=== PATIENT | female | born 1955 | race Caucasian/White ===

== ENCOUNTER 2017-08-25 08:59 | Outpatient (CLI) | payer OTHER | END 2017-08-25 09:00 | disposition home or self-care (01) | LOC: DTY/OP 08:59 | PROVIDERS: ATTEND Specialist | DX: Z01.818 Encounter for other preprocedural examination (principal); E66.01 Morbid (severe) obesity due to excess calories | CPT/HCPCS: 97802 ==

== ENCOUNTER 2018-02-02 16:09 | Outpatient (CLI) | payer BC | END 2018-02-02 16:10 | disposition home or self-care (01) | LOC: BICMAMMO 16:09 | PROVIDERS: ATTEND Obstetrics & Gynecology | DX: Z12.31 Encounter for screening mammogram for malignant neoplasm of breast (principal); R92.1 Mammographic calcification found on diagnostic imaging of breast | CPT/HCPCS: 77063; 77067 ==

== ENCOUNTER 2018-02-05 08:17 | Outpatient (CLI) | payer BC ==
--- NOTE | 2018-02-05 10:24 | RAD ---
LUMBAR SPINE 3 VIEWS: Date: 02/05/18 HISTORY: Low back pain. FINDINGS: There is anterior wedging of the L1 vertebra with loss of anterior height. This may be 20-25%. Promin ent anterior osteophytes at T12-L1 and L1-2 suggest stable compression. The other lumbar vertebra ariel ntain height and alignment. Degenerative disc changes are noted. Loss of disc space at L4-5. No evide nce of spondylolisthesis or spondylolysis. Facet hypertrophy is noted. IMPRESSION: Moderate degenerative changes of the lumbar spine as described. Anterior wedge compression at the L1 vertebra is noted as described. POS: OFF
== END 2018-02-05 08:18 | disposition home or self-care (01) ==
LOC: RAD-FRANK 08:17
PROVIDERS: ATTEND Nurse Practitioner Family
DX: M54.5 Low back pain (principal); M47.896 Other spondylosis, lumbar region
CPT/HCPCS: 72100

== ENCOUNTER 2019-03-01 07:53 | Outpatient (CLI) | payer BC ==
--- NOTE | 2019-03-01 09:07 | MMO ---
Bilateral MAMMO Bilat Screen [facility]. CLINICAL HISTORY: Patient is 63 years old and is seen for screening. The patient has no family history of breast cancer. The patient has no personal history of cancer. VIEWS: The views performed were: bilateral craniocaudal with tomosynthesis and bilateral mediolateral oblique with tomosynthesis. FILMS COMPARED: The present examination has been compared to prior imaging studies performed at [facility] on 09/28/2012, 08/25/2014, 10/10/2015, 10/21/2016 and 02/02/2018. MAMMOGRAM FINDINGS: There are stable benign appearing calcifications seen in both breasts. There are no suspicious masses, suspicious calcifications, or new areas of architectural distortion. IMPRESSION: THERE IS NO MAMMOGRAPHIC EVIDENCE OF MALIGNANCY. A ROUTINE FOLLOW-UP MAMMOGRAM IN 1 YEAR IS RECOMMENDED. THE RESULTS OF THIS EXAM WERE SENT TO THE PATIENT. ACR BI-RADS Category 2 - Benign finding MAMMOGRAPHY NOTE: 1. A negative mammogram report should not delay a biopsy if a dominant of clinically suspicious mass is present. 2. Approximately 10% to 15% of breast cancers are not detected by mammography. 3. Adenosis and dense breasts may obscure an underlying neoplasm.
== END 2019-03-01 07:54 | disposition home or self-care (01) ==
LOC: BICMAMMO 07:53
PROVIDERS: ATTEND Obstetrics & Gynecology
DX: Z12.31 Encounter for screening mammogram for malignant neoplasm of breast (principal)
CPT/HCPCS: 77063; 77067

== ENCOUNTER 2019-10-18 20:56 | Observation (INO) | payer BC, MEDICARE ==
--- NOTE | 2019-10-18 21:27 | RAD ---
Exam: Chest one view HISTORY:Chest pain Comparison: 04/15/2006 FINDINGS: Cardiac silhouette: Normal Aorta: Atherosclerosis Pulmonary vessels: Normal Costophrenic angles: Clear LUNGS: No masses or consolidation. Pneumothorax: None Osseous abnormalities: None IMPRESSION: No acute cardiopulmonary process. Atherosclerosis
[2019-10-18 21:33] LABS: #Basophils 0.1 thou/uL (0.0-0.2); #Eosinphils 0.4 thou/uL (0.0-0.7); #Lymphocytes 4.2 thou/uL (1.20-3.40); #Monocytes 0.6 thou/uL (0.11-0.59); #Neutrophils 3.3 thou/uL (1.40-6.50); %Basophils 1.3 % (0.0-1.0); %Eosinophils 4.8 % (0.0-10.0); %Lymphocytes 48.2 % (21.0-51.0); %Monocytes 7.4 % (0.0-10.0); %Neutrophils 38.4 % (42.0-75.0); Mean Corpuscular HGB CONC 34.2 g/dL (32.0-36.0); Mean Corpuscular Hemoglobin 31.7 pg (27.0-31.0); Mean Corpuscular Volume 92.7 fL (78.0-98.0); Platelet Count 207 thou/uL (130-400); RBC Distribution Width 11.8 % (11.5-14.5); White Blood Cell (WBC) Count 8.7 thou/uL (4.8-10.8)
[2019-10-18] MEDS ORDERED: Nitroglycerin 2% Ointment 1 INCH/1 GM Packet ONE (21:49)
[2019-10-18 22:04] LABS: ALT (SGPT) 20 U/L (8-55); AST (SGOT) 30 U/L (5-34); Albumin 4.6 g/dL (3.4-4.8); Alkaline Phosphatase 86 U/L (40-110); Anion Gap 16 mmol/L (10-20); BUN (Urea Nitrogen) 16 mg/dL (9.8-20.1); Bilirubin, Total 0.4 mg/dL (0.2-1.2); CK (CPK) 193 U/L (29-168); Calc. Creatinine Clearance 0 mL/min (70-130); Calcium 10.2 mg/dL (7.8-10.44); Carbon Dioxide 27 mmol/L (23-31); Chloride 99 mmol/L (98-107); Estimated GFR-MDRD 55; Globulin 4.2 g/dL (2.4-3.5); Glucose 190 mg/dL (80-115); Protein, Total 8.8 g/dL (6.0-8.3); Sodium 138 mmol/L (136-145)
[2019-10-19 02:31] LABS: Troponin I Less than 0.010 ng/mL (< 0.028)
[2019-10-19 05:57] LABS: Troponin I 0.011 ng/mL (< 0.028)
[2019-10-19] MEDS ORDERED: Ondansetron PF 4 MG/2 ML Vial IVP PRN (07:38)
[2019-10-19] MEDS ORDERED: Ondansetron ODT 4 MG TAB PO PRN (07:38)
[2019-10-19] MEDS ORDERED: Senokot S 8.6-50 MG TAB PO PRN (07:38)
[2019-10-19] MEDS ORDERED: Labetalol HCl 100 MG/20 ML VIAL SLOW IVP PRN (07:38)
[2019-10-19] MEDS ORDERED: Acetaminophen 325 MG TAB PO PRN (07:38)
[2019-10-19] MEDS ORDERED: Calcium Carbonate 500 MG ChewTAB PO PRN (07:38)
[2019-10-19] MEDS ORDERED: Nitroglycerin 0.4 MG TAB (25 Tab Bottle) PO PRN (07:38)
[2019-10-19] MEDS ORDERED: Insulin Regular 300 UNITS/3 ML VIAL SC PRN ×2 (07:39)
[2019-10-19] MEDS ORDERED: Dextrose 5% in Water 1,000 ML IV PRN (07:39)
[2019-10-19] MEDS ORDERED: Dextrose 50% Abboject 50 ML SYRINGE SLOW IVP PRN (07:39)
[2019-10-19] MEDS ORDERED: Enalaprilat Dihydrate 1.25 MG/ML VIAL SLOW IVP PRN (07:44)
[2019-10-19] MEDS ORDERED: Aspirin 325 mg Enteric Coated Tablet PO SCH (09:00)
[2019-10-19] MEDS ORDERED: Prevnar 13-Val Conj/PF 0.5 ML SYRINGE IM ONE (09:00)
[2019-10-19] MEDS ORDERED: Liothyronine Sodium 5 MCG TAB PO SCH (09:00)
[2019-10-19] MEDS ORDERED: Aspirin 325 MG TAB PO SCH (09:00)
[2019-10-19] MEDS ORDERED: Lisinopril 2.5 MG TAB PO SCH (09:00)
[2019-10-19] MEDS ORDERED: Communication Order-Pharmacy FS SCH (09:30)
[2019-10-19] MEDS ORDERED: Sodium Chloride 0.9% 1,000 ML IV SCH ×2 (09:30→13:00)
[2019-10-19] MEDS ORDERED: Heparin 10,000 UNITS/1 ML VIAL ONE (11:11)
[2019-10-19] MEDS ORDERED: Nitroglycerin 100MG/250ML BOT 250 ML ONE (11:11)
[2019-10-19] MEDS ORDERED: Lidocaine 1% (PF) 30 ML VIAL ONE (11:11)
[2019-10-19] MEDS ORDERED: Heparin (Artline) 1,000 ML ONE (11:11)
[2019-10-19] MEDS ORDERED: Verapamil 5 MG/2 ML VIAL ONE (11:11)
--- NOTE | 2019-10-19 11:52 | HP ---
PRIMARY CARE PHYSICIAN: KAROLINE Gonzales CHIEF COMPLAINT: Chest discomfort. HISTORY OF PRESENT ILLNESS: The patient is a 64-year-old white female with hypertension, diabetes mellitus type 2, and hyperlipidemia presented to the emergency room with chest discomfort. The chest discomfort was substernal/epigastric area without any radiation. It was pressure-like and felt like indigestion. She denies any radiation, lightheadedness, dizziness, or palpitations. She has shortness of breath on moderate exertion which has not changed recently. She denies recent immobilization travel or leg swelling. She tried taking kwzh-ssk-[id number] Tums without significant relief. She was scheduled to see Dr. Silva today. In the emergency room, her initial vital signs showed temperature 98, pulse rate of 68, respirations of 18, blood pressure of 163/69 with O2 saturation of 98% on room air. Her EKG showed sinus rhythm with nonspecific ST-T wave changes. She had nitroglycerin patch placed after which her symptoms somewhat improved. She also had a stress test last month at Dr. Silva's office that was negative per patient report. PAST MEDICAL HISTORY: 1. Hypertension. 2. Diabetes mellitus type 2. 3. Hyperlipidemia. 4. Obesity with a BMI of 33.7. 5. CKD stage 3. PAST SURGICAL HISTORY: 1. Cholecystectomy. 2. Tonsillectomy. ALLERGIES: NO KNOWN DRUG ALLERGIES. CURRENT HOME MEDICATION: 1. Vasotec 10 mg daily. 2. Levothyroxine 125 mcg daily. 3. Cytomel 5 mcg daily. 4. Sitagliptin with metformin mg twice a day. SOCIAL HISTORY: The patient currently lives at home with her family. She is full code, makes her own decision with the help of her . No current use of tobacco, alcohol, or drug use. FAMILY HISTORY: Positive for hypertension. Mother had prediabetes. Father had some kind of cancer. REVIEW OF SYSTEMS: All other review of systems was reviewed and were found negative. PHYSICAL EXAMINATION: VITAL SIGNS: As discussed above. GENERAL: 64-year-old female in no apparent distress. Denies any chest discomfort. HEENT: Head, atraumatic and normocephalic. Sclerae anicteric. Moist mucous membranes. No oral lesion. NECK: Supple. No JVD appreciated. No carotid bruit. LUNGS: Clear to auscultation bilaterally. No wheezing, rales, or rhonchi. HEART: S1 and S2 present. Regular rate and rhythm. No rubs or gallops. ABDOMEN: Soft, nontender. Bowel sounds present. No rebound or guarding. EXTREMITIES: No edema or calf tenderness. NEUROLOGY: Grossly nonfocal. Power was 5/5 in all extremities. PSYCHIATRY: Alert, awake, and oriented x3. Normal affect. PERIPHERAL VASCULAR: Radial pulses palpable bilaterally and equal volume. SKIN: Warm and dry. LYMPH NODES: No palpable lymph nodes in the neck. LABORATORY FINDINGS: CBC showed WBC 8.7 with hemoglobin 13, hematocrit 38, platelet count 207. Chemistry showed sodium 138, potassium 4, chloride 99, bicarb 27, BUN 16, creatinine 1.01, glucose of 190. Troponin x3 have been negative. BNP was 17.2. EKG by my review as discussed above. Chest x-ray by my review was negative for infiltrate or edema. IMPRESSION: 1. Chest discomfort, rule out acute coronary syndrome. 2. Recent negative stress test per patient report. 3. Diabetes mellitus type 2. 4. Hypertension. 5. Hyperlipidemia. 6. Obesity with a BMI of 33.7. 7. Chronic kidney disease, stage 3. PLAN: The patient will be monitored on the telemetry unit. Cardiology will be consulted. We will continue aspirin. We will resume Vasotec. We will add low-dose statins. Resume levothyroxine. We will add PPIs. We will keep her n.p.o. for possible cardiac catheterization. DISPOSITION: Based on Cardiology input. Job ID: [id number]
[2019-10-19] MEDS ORDERED: Midazolam HCl 2 mg/2 ml Vial ONE (12:21)
[2019-10-19] MEDS ORDERED: Fentanyl 100 MCG/2 ML VIAL ONE (12:21)
[2019-10-19] MEDS ORDERED: Sodium Chloride 0.9% 200 ML IV PRN (12:46)
[2019-10-19] MEDS ORDERED: Nitroglycerin 0.4 MG TAB (25 Tab Bottle) SL PRN (12:46)
[2019-10-19] MEDS ORDERED: Acetaminophen/Codeine 30-300mg Tablet PO PRN ×2 (12:46)
--- NOTE | 2019-10-19 12:49 | CON ---
DATE OF CONSULTATION: REASON FOR CONSULTATION: Chest pain. HISTORY OF PRESENT ILLNESS: Ms. Reynolds is a 64-year-old woman with recent diagnosis of coronary artery disease based on a calcium score. She underwent a noninvasive stress study, was felt to be negative for ischemia. She recently had chest tightness and epigastric pain. She is concerned about underlying coronary artery disease given her previous history. She proceed to the emergency room. Pain lasted for several minutes. This slowly resolved. No other ameliorating exacerbating, or precipitating factors present. PAST MEDICAL HISTORY: CAD, hypertension, hyperlipidemia, varicose veins, diabetes mellitus. SURGICAL HISTORY: Knee surgery, cholecystectomy. HOME MEDICATIONS: Include Janumet, enalapril, thyroid, aspirin, Metamucil, fish oil, super B, vitamin D3, vitamin E, magnesium, ginkgo biloba. REVIEW OF SYSTEMS: A 10-point review of systems is reviewed as above, otherwise negative. ALLERGIES: NONE. PHYSICAL EXAMINATION: GENERAL: The patient is a pleasant female who is in no acute distress. The patient appears their stated age. VITAL SIGNS: Blood pressure 168/77, pulse 63, temp 98.7. NEUROLOGIC: The patient is alert and oriented x3 with no focal neurologic deficits. HEENT: Sclerae without icterus. Mouth has moist mucous membranes with normal pallor. NECK: No JVD. Carotid upstroke brisk. No bruits bilaterally. LUNGS: Clear to auscultation with unlabored respirations. BACK: No scoliosis or kyphosis. CARDIAC: Regular rate and rhythm with normal S1 and S2. No S3 or S4 noted. No significant rubs, murmurs, thrills, or gallops noted throughout the precordium. PMI is not displaced. There is no parasternal heave. ABDOMEN: Soft, nontender, nondistended. No peritoneal signs present. No hepatosplenomegaly. No abnormal striae. EXTREMITIES: 2+ femoral and 2+ dorsalis pedis pulses. No cyanosis, clubbing, or edema. SKIN: No gross abnormalities. PERTINENT LAB: CK troponin negative. Hemoglobin 13.0. EKG normal sinus rhythm with nonspecific ST-T wave changes. IMPRESSION: 1. Chest pain. 2. Coronary artery disease. 3. Diabetes mellitus. 4. Hyperlipidemia. RECOMMENDATIONS: Ms. Reynolds has multiple risk factors for underlying coronary artery disease. She does have coronary artery disease based on calcium score, although her perfusion study recently was negative for ischemia. I discussed medical therapy versus coronary angiography. I have discussed risks and benefits of both. She would like to proceed with coronary angiography. I discussed proceeding in full detail with Ms. Reynolds which include, but not limited to the following: I discussed the procedure in full detail with the patient. The risks of the procedure were also discussed. The risks of the procedure include but are not limited to the following: , stroke, MO, need for emergency surgery, loss of limb, bleeding, and infection, as well as a reaction to the dye causing kidney failure and needing long-term dialysis. I also discussed the risks of PCI to include all of the above including coronary dissection and perforation in addition to acute stent thrombosis and restenosis. All questions about the procedure were answered. Given the above, the patient agreed to proceed with coronary angiography and possible PCI. All questions answered. Also discussed drug coated versus nondrug coated stent placement. There were no complications. We will proceed if needed. Job ID: [id number]
[2019-10-19] MEDS ORDERED: Iopamidol 370 76% 100 ML VIAL ONE (15:55)
--- NOTE | 2019-10-19 16:25 | DIS ---
DATE OF ADMISSION: 10/19/2019 DATE OF DISCHARGE: 10/19/2019 DISCHARGE DISPOSITION: Home. FOLLOWUP: 1. Follow up with primary care physician, Guadalupe Vilalnueva in 1 week. 2. Follow up with Dr. Silva as scheduled. 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 Silva. BRIEF HOSPITAL COURSE: The patient is a 64-year-old female with hypertension, diabetes mellitus type 2 and hyperlipidemia with recent negative stress test, presented to the hospital with chest discomfort. She was monitored on the telemetry unit. Serial troponins were negative. EKG showed sinus rhythm with nonspecific ST-T wave changes. She underwent cardiac catheterization that showed 30% lesion in the RCA. Left main, LAD and left circumflex were normal. She has been started on low-dose aspirin along with statins. She will also take Protonix 40 mg daily for 1 month. Plan of care was discussed with the patient and the family in detail, they stated understanding. FINAL DIAGNOSES: 1. Chest discomfort, acute coronary syndrome ruled out. 2. Mild to moderate coronary artery disease. 3. Recent negative stress test. 4. Diabetes mellitus, type 2. 5. Hypertension. 6. Hyperlipidemia. 7. Suspected gastroesophageal reflux disease. 8. Obesity with a BMI of 33.7. 9. Chronic kidney disease, stage 3. Job ID: [id number]
[2019-10-19 19:24] VITALS: BP 132/61; TEMP 98.6
[2019-10-20] MEDS ORDERED: Levothyroxine Sodium 125 MCG TAB PO SCH (06:00)
== END 2019-10-19 17:37 | disposition home or self-care (01) ==
LOC: ERS 20:56 → 2SW 10-19 00:20
PROVIDERS: ADMIT Internal Medicine; ATTEND Internal Medicine
PROC: 4A023N7 Measurement of Cardiac Sampling and Pressure, Left Heart, Percutaneous Approach (ICD-10-PCS; principal; 2019-10-19)
PROC: B201YZZ Plain Radiography of Multiple Coronary Arteries using Other Contrast (ICD-10-PCS; 2019-10-19)
PROC: B205YZZ Plain Radiography of Left Heart using Other Contrast (ICD-10-PCS; 2019-10-19)
DX: R07.89 Other chest pain (principal); I25.10 Atherosclerotic heart disease of native coronary artery without angina pectoris; E11.22 Type 2 diabetes mellitus with diabetic chronic kidney disease; I12.9 Hypertensive chronic kidney disease with stage 1 through stage 4 chronic kidney disease, or unspecified chronic kidney disease; N18.3 Chronic kidney disease, stage 3 (moderate); E78.5 Hyperlipidemia, unspecified; E66.9 Obesity, unspecified; Z68.33 Body mass index [BMI] 33.0-33.9, adult; Z79.84 Long term (current) use of oral hypoglycemic drugs; Z79.82 Long term (current) use of aspirin; Z79.899 Other long term (current) drug therapy
CPT/HCPCS: 36415; 36416; 71045; 80053; 82550; 83880; 84484; 85025; 90471; 90670; 93005; 93458; 94760; 96360; 99152; C1769; G0009; G0378; J1644; J2001; J2250; J3010; Q9967

== ENCOUNTER 2020-03-16 09:34 | Outpatient (CLI) | payer MEDICARE, BC ==
--- NOTE | 2020-03-16 10:33 | MMO ---
Bilateral MAMMO Bilat Screen [facility]. CLINICAL HISTORY: Patient is 64 years old and is seen for screening. The patient has no family history of breast cancer. The patient has no personal history of cancer. VIEWS: The views performed were: bilateral craniocaudal with tomosynthesis and bilateral mediolateral oblique with tomosynthesis. FILMS COMPARED: The present examination has been compared to prior imaging studies performed at [facility] on 10/10/2015, 10/21/2016, 02/02/2018 and 03/01/2019. This study has been interpreted with the assistance of computer-aided detection. MAMMOGRAM FINDINGS: There are scattered fibroglandular densities. Benign calcifications are noted bilaterally. There are no suspicious masses, suspicious calcifications, or new areas of architectural distortion. IMPRESSION: THERE IS NO MAMMOGRAPHIC EVIDENCE OF MALIGNANCY. A ROUTINE FOLLOW-UP MAMMOGRAM IN 1 YEAR IS RECOMMENDED. THE RESULTS OF THIS EXAM WERE SENT TO THE PATIENT. ACR BI-RADS Category 2 - Benign finding MAMMOGRAPHY NOTE: 1. A negative mammogram report should not delay a biopsy if a dominant of clinically suspicious mass is present. 2. Approximately 10% to 15% of breast cancers are not detected by mammography. 3. Adenosis and dense breasts may obscure an underlying neoplasm. Reported by: Lala BUSH Electonically Signed: [id number]
== END 2020-03-16 09:35 | disposition home or self-care (01) ==
LOC: BICMAMMO 09:34
PROVIDERS: ATTEND Obstetrics & Gynecology
DX: Z12.31 Encounter for screening mammogram for malignant neoplasm of breast (principal)
CPT/HCPCS: 77063; 77067

== ENCOUNTER 2020-11-29 14:48 | Outpatient (CLI) | payer MEDICARE, BC ==
--- NOTE | 2020-11-29 15:04 | RAD ---
RIGHT ANKLE 3 VIEWS: HISTORY: right ankle pain FINDINGS: Soft tissue swelling is present. Degenerative changes are noted. The ankle mortise is maintained. No acute fracture or dislocation is identified. Calcaneal spurs are present.
== END 2020-11-29 14:49 | disposition home or self-care (01) ==
LOC: RAD-FRANK 14:48
PROVIDERS: ATTEND Nurse Practitioner Family
DX: Z00.01 Encounter for general adult medical examination with abnormal findings (principal); M25.571 Pain in right ankle and joints of right foot

== ENCOUNTER 2021-03-19 07:41 | Outpatient (CLI) | payer MEDICARE, BC | END 2021-03-19 07:42 | disposition home or self-care (01) | LOC: BICMAMMO 07:41 | PROVIDERS: ATTEND Obstetrics & Gynecology | DX: Z12.31 Encounter for screening mammogram for malignant neoplasm of breast (principal) | CPT/HCPCS: 77063; 77067 ==

== ENCOUNTER 2022-03-21 08:51 | Outpatient (CLI) | payer MEDICARE, BC | END 2022-03-21 08:52 | disposition home or self-care (01) | LOC: BICMAMMO 08:51 | PROVIDERS: ATTEND Obstetrics & Gynecology | DX: Z12.31 Encounter for screening mammogram for malignant neoplasm of breast (principal) | CPT/HCPCS: 77063; 77067 ==

== ENCOUNTER 2023-01-29 13:45 | Outpatient (CLI) | payer MEDICARE, BC | END 2023-01-29 13:46 | disposition home or self-care (01) | LOC: RAD-FRANK 13:45 | PROVIDERS: ATTEND Nurse Practitioner Family | DX: M54.50 Low back pain, unspecified (principal); M54.2 Cervicalgia | CPT/HCPCS: 72040; 72100 ==

== ENCOUNTER 2024-04-22 11:48 | Outpatient (CLI) | payer MEDICARE, BC | END 2024-04-22 11:49 | disposition home or self-care (01) | LOC: BICMAMMO 11:48 | PROVIDERS: ATTEND Obstetrics & Gynecology | DX: Z12.31 Encounter for screening mammogram for malignant neoplasm of breast (principal) | CPT/HCPCS: 77063; 77067 ==